=== PATIENT | male | born 1990 | race Caucasian/White ===

== ENCOUNTER 2016-12-31 22:31 | Emergency (ER) | payer SELFPAY ==
[2016-12-31 22:39] VITALS: BP 164/94
--- NOTE | 2017-01-01 00:19 | EDM.PDOC ---
ED HISTORY OF PRESENT ILLNESS - General Chief Complaint: Respiratory Problem Stated Complaint: COUGH/CONGESTION Time Seen by Provider: 12/31/16 22:43 Source of Information: Reports: Patient History Limitations: Reports: No limitations - History of Present Illness INITIAL COMMENTS - FREE TEXT/NARRATIVE: The patient presents with cough, fever, body aches, congestion and runny nose. He was seen at the [facility] a few days ago and his strep was negative. He continues to have symptoms and he is worried he may have pneumonia. Timing/Duration: Reports: Day(s): (5) Severity: moderate Improves with: Reports: None Worsens with: Reports: None Associated Symptoms (General): Reports: cough, fever/chills, shortness of breath. Denies: chest pain, nausea/vomiting - Related Data Allergies/ADRs: Allergies Allergy/AdvReac Type Severity Reaction Status Date / Time codeine Allergy Itching Verified 10/16/16 18:25 diphenhydramine HCl Allergy Hallucinati Verified 10/16/16 18:25 [From Benadryl] ons hydrocodone Allergy Vomiting Verified 10/16/16 18:25 oxycodone Allergy Itching Verified 10/16/16 18:25 Sulfa (Sulfonamide Allergy Cannot Verified 10/16/16 18:25 Antibiotics) Remember tramadol Allergy Nausea and Verified 12/10/16 12:17 Vomiting Home Meds: Home Meds Cyclobenzaprine [Flexeril] 10 mg PO BEDTIME PRN #25 tablet 05/19/15 [Rx] Meloxicam [Mobic] 15 mg PO DAILY 07/06/16 [History] Past Medical History - Past Health History Medical/Surgical History: Denies Medical/Surgical History Musculoskeletal History: Reports: Back pain, chronic - Past Surgical History HEENT Surgical History: Reports: Oral surgery Musculoskeletal Surgical History: Reports: Other (see below) Other Musculoskeletal Surgeries/Procedures:: freq shoulder dislocations Social & Family History - Tobacco Use Smoking Status *Q: Current Every Day Smoker Years of Tobacco use: 14 Packs/Tins Daily: 1 Used Tobacco, but Quit: No Second Hand Smoke Exposure: No - Caffeine Use Caffeine Use: Reports: Energy drinks, Soda - Alcohol Use Days Per Week of Alcohol Use: 0 - Recreational Drug Use Recreational Drug Use: No ED ROS GENERAL - Review of Systems Review Of Systems: See Below Constitutional: Reports: fever, chills, malaise, weakness, fatigue HEENT: Reports: Throat pain Respiratory: Reports: shortness of breath, cough Cardiovascular: Reports: No symptoms Endocrine: Reports: no symptoms GI/Abdominal: Reports: No symptoms : Reports: no symptoms Musculoskeletal: Reports: no symptoms Skin: Reports: no symptoms ED EXAM, GENERAL - Physical Exam Exam: See Below Exam Limited By: No limitations General Appearance: alert, no apparent distress Ears: normal external exam, normal canal, normal TMs Nose: normal inspection Throat/Mouth: Other (Pharyngeal erythema) Head: atraumatic, normocephalic Neck: normal inspection Respiratory/Chest: no respiratory distress, lungs clear, normal breath sounds Cardiovascular: regular rate, rhythm, no edema, no murmur GI/Abdominal: soft, non tender, no organomegaly Back Exam: normal inspection Extremities: normal inspection Neurological: alert, oriented, no motor/sensory deficits Course - Vital Signs Last Recorded V/S: Last Vital Signs Temp 97.4 F 12/31/16 22:38 Pulse 95 12/31/16 22:38 Resp 20 12/31/16 22:38 BP 164/94 H 12/31/16 22:38 Pulse Ox 95 12/31/16 22:38 - Orders/Labs/Meds Orders: Active Orders 24 hr Category Date Time Status CXR [Chest 2V] [CR] Stat Exams 12/31/16 23:02 Taken - Re-Assessments/Exams Free Text/Narrative Re-Assessment/Exam: 01/01/17 00:17 His CXR does not show an infiltrate. His influenza B was positive. He is out 5 days and is not a candidate for tamiflu. I will discharge him home with symptomatic care. Departure - Departure Time of Disposition: 00:20 Disposition: Home, Self-Care 01 Condition: good Clinical Impression: Influenza B Referrals: Taylor Pierson PA-C [Primary Care Provider] - Forms: ED Department Discharge Additional Instructions: Take tylenol or motrin for any fever or chills. Take some robitussin for any cough. Do not work until you are symptom free. - My Orders Last 24 Hours: My Active Orders 12/31/16 23:02 CXR [Chest 2V] [CR] Stat - Assessment/Plan Last 24 Hours: My Active Orders 12/31/16 23:02 CXR [Chest 2V] [CR] Stat
--- NOTE | 2017-01-02 08:28 | CR ---
Chest: Two views of the chest are obtained. Comparison: Previous chest x-ray is not available. Heart size and mediastinum are normal. Lungs are clear. Bony structures appear within normal limits for the patient's age. Impression: 1. Nothing acute is identified on two-view chest x-ray. Diagnostic code #1
== END 2017-01-01 00:30 | disposition home or self-care (01) ==
LOC: JD.ED 22:31
DX: J10.1 Influenza due to other identified influenza virus with other respiratory manifestations (principal); F17.210 Nicotine dependence, cigarettes, uncomplicated; Z98.890 Other specified postprocedural states; Z79.899 Other long term (current) drug therapy; Z88.2 Allergy status to sulfonamides; Z88.5 Allergy status to narcotic agent; Z88.6 Allergy status to analgesic agent; Z88.8 Allergy status to other drugs, medicaments and biological substances
CPT/HCPCS: 71020; 71020-26; 87804; 99282; 99284